=== PATIENT | male | born 1945 | race Caucasian/White ===

== ENCOUNTER 2017-11-21 07:57 | Day surgery (SDC) | payer MEDICARE ==
[2017-11-21] MEDS ORDERED: Lactated Ringers 1,000 ML IV SCH (08:30)
[2017-11-21] MEDS ORDERED: Propofol 200 MG/20 ML SDV ONE ×2 (09:36→10:05)
[2017-11-21] MEDS ORDERED: fentaNYL 100 MCG/2 ML SDV ONE (09:36)
[2017-11-21 11:23] VITALS: BP 135/84
--- NOTE | 2017-11-21 12:52 | OR ---
DATE OF PROCEDURE: 11/21/2017 PREOPERATIVE DIAGNOSIS: Strong family history of colon cancer, brother of colon cancer. POSTOPERATIVE DIAGNOSES: 1. Diverticulosis. 2. Right colon polyp. 3. Strong family history of colon cancer, brother of colon cancer. PROCEDURES: Colonoscopy to the cecum with biopsy resection of small right colon polyp. SURGEON: Benoit Garcia MD. ANESTHESIA: IV anesthesia with monitored anesthesia care. INDICATION: This 72-year-old white male is referred for a colonoscopy. His brother recently of colon cancer. He says his last colonoscopic exam was done ten years ago. I counseled him for the procedure including risks and alternatives, and he gave his informed consent to proceed. DESCRIPTION OF PROCEDURE: The patient was placed in the left lateral decubitus position. IV anesthesia was administered by the Anesthesia Service. Time-out was held. A rectal exam was performed, which was unremarkable. The flexible video Olympus colonoscope was introduced through his anus, up his rectum, and out his colon all the way to the cecum. To accomplish this, we had to apply some abdominal compression. En route to the cecum, we saw multiple left-sided diverticula. There was no bleeding nor inflammation associated with them. Also, en route to the cecum, in the right colon we saw a small polyp, which was removed with several bites of the biopsy forceps. Once the cecum was reached, the scope was slowly withdrawn, examining the mucosa throughout. No additional mucosal abnormalities were noted. The scope was retroflexed in the rectum with the distal rectum appearing unremarkable. The scope was straightened and removed. He tolerated the procedure well. Benoit Garcia MD /[id number]
== END 2017-11-21 11:35 | disposition home or self-care (01) ==
LOC: JP.SDS 07:57
PROVIDERS: ATTEND Surgery
DX: Z12.11 Encounter for screening for malignant neoplasm of colon (principal); D12.2 Benign neoplasm of ascending colon; K57.30 Diverticulosis of large intestine without perforation or abscess without bleeding; J44.9 Chronic obstructive pulmonary disease, unspecified; E66.9 Obesity, unspecified; F17.210 Nicotine dependence, cigarettes, uncomplicated; E78.5 Hyperlipidemia, unspecified; Z80.0 Family history of malignant neoplasm of digestive organs
CPT/HCPCS: 45380; J2704; J3010; J7120; 88305

== ENCOUNTER 2019-06-14 17:54 | Emergency (ER) | payer MEDICARE ==
[2019-06-14 18:15] VITALS: BP 149/86; PULSE 73
--- NOTE | 2019-06-14 18:28 | EDM.PDOC ---
ED HPI GENERAL MEDICAL PROBLEM - General Chief Complaint: Gastrointestinal Problem Stated Complaint: BOWELS Time Seen by Provider: 06/14/19 18:23 Source of Information: Reports: Patient, RN Notes Reviewed History Limitations: Reports: No Limitations - History of Present Illness INITIAL COMMENTS - FREE TEXT/NARRATIVE: 73-year-old gentleman presents emergency department a complaint of constipation , he states he recently started Tylenol 3 postsurgical and now he is having difficulty with bowel movements last regular bowel movement was a couple of days ago. Abdomen Pain Score (Numeric/FACES): 3 - Related Data Allergies Allergy/AdvReac Type Severity Reaction Status Date / Time No Known Allergies Allergy Verified 06/14/19 18:08 Home Meds: Home Meds Acetaminophen with Codeine [Acetaminophen-Cod #3] 1 each PO Q4H 06/14/19 [ History] Ofloxacin 5 drop TOP ASDIRECTED 06/14/19 [History] Tamsulosin [Tamsulosin 24 Hr] 0.4 mg PO DAILY 06/14/19 [History] Past Medical History HEENT History: Reports: Hard of Hearing, Impaired Vision Respiratory History: Reports: COPD Gastrointestinal History: Reports: Chronic Constipation Genitourinary History: Reports: Renal Calculus Musculoskeletal History: Reports: Back Pain, Chronic, Osteoarthritis Endocrine/Metabolic History: Reports: Obesity/BMI 30+ - Infectious Disease History Infectious Disease History: Reports: Chicken Pox, Measles, Mumps - Past Surgical History HEENT Surgical History: Reports: Other (See Below) Other HEENT Surgeries/Procedures: Uvula removed Recent l ear surgery. Respiratory Surgical History: Reports: None GI Surgical History: Reports: Colonoscopy Male Surgical History: Reports: None Endocrine Surgical History: Reports: None Musculoskeletal Surgical History: Reports: Knee Replacement, Shoulder Surgery Other Musculoskeletal Surgeries/Procedures:: Hx of knee pain. Social & Family History - Tobacco Use Smoking Status *Q: Current Every Day Smoker Years of Tobacco use: 60 Packs/Tins Daily: 1 Used Tobacco, but Quit: No Second Hand Smoke Exposure: Yes - Caffeine Use Caffeine Use: Reports: Coffee - Recreational Drug Use Recreational Drug Use: No ED ROS GENERAL - Review of Systems Review Of Systems: See Below Constitutional: Reports: No Symptoms HEENT: Reports: No Symptoms Respiratory: Reports: No Symptoms Cardiovascular: Reports: No Symptoms GI/Abdominal: Reports: Constipation, Flatus. Denies: Abdominal Pain, Nausea, Vomiting : Reports: No Symptoms ED EXAM, GI/ABD - Physical Exam Exam: See Below Exam Limited By: No Limitations General Appearance: Alert, WD/WN, No Apparent Distress Respiratory/Chest: No Respiratory Distress GI/Abdominal Exam: Soft, Non-Tender Course - Vital Signs Last Recorded V/S: Last Vital Signs Temp 96.3 F 06/14/19 18:21 Pulse 73 06/14/19 18:21 Resp 16 06/14/19 18:21 BP 149/86 H 06/14/19 18:21 Pulse Ox 98 06/14/19 18:21 - Orders/Labs/Meds Orders: Active Orders 24 hr Category Date Time Status Enema [RC] ASDIRECTED Care 06/14/19 18:56 Active Departure - Departure Time of Disposition: 20:30 Disposition: Home, Self-Care 01 Condition: Fair Clinical Impression: Functional constipation - Discharge Information Referrals: Zhang Arevalo [facility] [Primary Care Provider] - Forms: ED Department Discharge Additional Instructions: Follow the colonoscopy prep with [facility], please followup with your primary care provider in 3-5 days if not better, please call return to the emergency department with worsening of symptoms. Sepsis Event Note - Evaluation Sepsis Screening Result: No Definite Risk - Focused Exam Vital Signs: Vital Signs Temp Pulse Resp BP Pulse Ox 06/14/19 18:21 96.3 F 73 16 149/86 H 98 06/14/19 18:06 96.3 F 73 16 149/86 H 98 Date Exam was Performed: 06/14/19 Time Exam was Performed: 20:29 - My Orders Last 24 Hours: My Active Orders 06/14/19 18:56 Enema [RC] ASDIRECTED - Assessment/Plan Last 24 Hours: My Active Orders 06/14/19 18:56 Enema [RC] ASDIRECTED Plan: Assessment Acuity = acute Site and laterality = functional constipation Etiology = slow transit time Manifestations = abdominal pain Location of injury = Home Lab values = plain film shows large amount of stool in the colon Plan He had some relief with enema provided in ED, plan is to follow the colonoscopy prep at home with [facility] follow-up primary care 3 to 5 days if not better This note was dictated using [employer] voice recognition software please call with any questions on syntax or grammar.
--- NOTE | 2019-06-14 19:36 | CRLCR ---
Indication: Pain. No bowel movements. Technique: AP view of the abdomen and pelvis. Comparison: None Findings: A large amount of stool is identified within the colon. The bowel gas pattern is nonobstructive. Degenerative changes of the spine and both hips are identified. Impression: Large amount of stool. Dictated by Farrah Hugo MD @ Jun 14 2019 7:34PM Signed by Dr. Farrah Hugo @ Jun 14 2019 7:35PM
== END 2019-06-14 21:14 | disposition home or self-care (01) ==
LOC: JP.ED 17:54
DX: K59.04 Chronic idiopathic constipation (principal); J44.9 Chronic obstructive pulmonary disease, unspecified; E66.9 Obesity, unspecified; F17.210 Nicotine dependence, cigarettes, uncomplicated; Z68.32 Body mass index [BMI] 32.0-32.9, adult
CPT/HCPCS: 74018; 99283; 99283-25

== ENCOUNTER 2023-01-02 08:15 | Day surgery (SDC) | payer MEDICARE ==
[~2023-01-02 08:15] MED LIST: Sodium Chloride 0.9% 10 ML Syringe FLUSH PRN
[2023-01-02 09:28] VITALS: BP 164/82; PULSE 60
== END 2023-01-02 09:55 | disposition home or self-care (01) ==
LOC: JP.SDS 08:15
PROVIDERS: ATTEND Ophthalmology
DX: H26.9 Unspecified cataract (principal); E78.5 Hyperlipidemia, unspecified; J44.9 Chronic obstructive pulmonary disease, unspecified; F17.200 Nicotine dependence, unspecified, uncomplicated; E66.9 Obesity, unspecified; Z68.32 Body mass index [BMI] 32.0-32.9, adult
CPT/HCPCS: 66984; J3490

== ENCOUNTER 2023-01-16 07:57 | Day surgery (SDC) | payer MEDICARE ==
[2023-01-16 09:07] VITALS: BP 145/67; PULSE 68
[2023-01-16] MEDS ORDERED: Sodium Chloride 0.9% 10 ML Syringe FLUSH PRN (10:00)
== END 2023-01-16 09:23 | disposition home or self-care (01) ==
LOC: JP.SDS 07:57
PROVIDERS: ATTEND Ophthalmology
DX: H26.9 Unspecified cataract (principal); J44.9 Chronic obstructive pulmonary disease, unspecified; M81.0 Age-related osteoporosis without current pathological fracture; M19.90 Unspecified osteoarthritis, unspecified site; I73.9 Peripheral vascular disease, unspecified